=== PATIENT | male | born 1980 | race Caucasian/White ===

== ENCOUNTER 2024-10-29 00:13 | Day surgery (SDC) | payer BC, SELFPAY ==
[2024-10-19 09:52] VITALS: BMI 31.6
--- OUTSIDE RECORDS SUMMARY | 2024-10-29 00:16 | XMS_ITS | Clinical Summary ---
Author Organization [facility] Care Team Providers Care Director It Name Role Phone Unavailable Primary Care Provider Unavailabl e Social History Tobacco Use Types Packs/Day Years Used Date Smoking Tobacco: Never Assessed Sex and Gender Information Value Date Recorded Sex Assigned at Not on file Legal Sex Male 7:50 AM [place] MAN Gender Identity Not on file Sexual Orientation Not on file Plan of Treatment Health Maintenance Due Date Last Done Comments Hepatitis C Virus (HCV) Screening 1978 TdaP Immunization 1978 Hepatitis B Immunization (1 of 3 - 19+ 3-dose series) 1997 Colonoscopy 10/12/2023 Colorectal Cancer Screening 10/12/2023 Influenza Immunization (#1) 2024 SARS-COV-2 Immunization ( season) 2024 09/17/2020, 08/25/2020 Respiratory Syncytial Virus (RSV) Immunization (Adult) (1 - 1-dose 75+ series) 2053 Meningococcal Immunization (ACWY) Aged Out No longer eligible b ased on patient's age to complete this topic Pneumococcal Immunization Combined Aged Out No longer eligible b ased on patient's age to complete this topic Rotavirus Immunization Aged Out No lo nger eligible based on patient's age to complete this topic
[2024-10-29 06:22] VITALS: BP 124/94; PULSE 66; RESP 18; TEMP 35.7; O2SAT 100
[2024-10-29] MEDS: LACTATED RINGERS 1,000 ML 150 ML IV CONT (06:30)
--- NOTE | 2024-10-29 06:59 | P.PNAN_ITS ---
Anes - Initial Pre Proc Eval Procedure: Operation Date: 10/29/24 07:30 Proposed Procedures p Screening Colonoscopy - Austin Choi MD Date/Time: 10/29/24 06:59 Surgeon: Austin Choi MD Pre Op Diagnosis: screening Patient Data Age: 44 Gender: M Height: 1.65 m Weight: 85.9 kg Last Vital Signs Temp 96.3 F L 10/29/24 06:22 Pulse 66 10/29/24 06:22 Resp 18 10/29/24 06:22 BP 124/94 H 10/29/24 06:22 Pulse Ox 100 10/29/24 06:22 O2 Del Method Room Air 10/29/24 06:22 Allergies Allergy/AdvReac Type Severity Reaction Status Date / Time No Known Allergies Allergy Verified 10/29/24 06:21 Patient hx anesthesia problems: none Family hx anesthesia problems: none Results Review: All pre-operative results and documents have been reviewed as part of the pre- operative evaluation. [facility] Past Medical History Medical History Annual visit for general adult medical examination without abnormal findings Family hx of prostate cancer Eczema of both hands Acne Family history of prostate cancer in father Finger injury (~2010) Surgical History Surgical History H/O vasectomy (~2013) Family History Family History Mother Hypertension Diabetes mellitus Father Hypertension Malignant neoplasm of prostate Grandparent Pancreatic cancer Diabetes mellitus Grandparent Diabetes mellitus Alzheimer disease Grandparent Hypertension Diabetes mellitus Grandparent Hypertension Other Malignant neoplasm of prostate Other Malignant neoplasm of prostate Sibling Hypertension Social History Social History Smoking packs per day: 1 Smoking cigarettes per day: 20.0 Years smoked: 20 Smoking pack-years: 20.00 Smoking status: Former smoker Tobacco type: cigarettes Alcohol intake: current Drinks per week: 4 Substance use: never Substance use type: does not use Do You Feel Safe in your Home?: No Lack of Transportation: No Lack of Food: Never True Current Housing: I Have Housing Concerned About Future Housing: No Difficulty Paying Gas/Electric Bills: No Difficulty Paying for Meds: No Currently Unemployed: No Education: Bachelor's Degree Difficulty w/ Childcare or Family Care: No Living arrangements: with family Additional living arrangements comments: Occupation/Education: occupation Gender identity (if verbalized by the patient): Male Sexual Orientation (if Verbalized by the Patient): Straight or Heterosexual Spiritual care concerns: No Agree to blood products: Yes Anes - Eval Final PreProcedure Day of Procedure 10/29/24 06:59 Patient weight: obese Lungs: normal air movement Airway: Mallampati scale class II Neurological: alert and oriented Last oral intake: >/= 8 hours ASA classification: II Emergent: no Anesthetic plan: proceed Anesthesia type and monitoring: general GIVS and standard monitoring Results Review: All pre-operative results and documents have been reviewed as part of the pre- operative evaluation. Ex smoker, quit 2019. Informed Consent: The patient's anesthetic plan and its attendant risks and benefits were discussed with the patient/family/POA. Questions were solicited and answers provided to the satisfaction of the patient/family/POA.
--- NOTE | 2024-10-29 07:28 | PM.IMHP ---
H&P: HPI History of Present Illness Date/Time: 10/29/24 07:28 Chief Complaint: Screening colonoscopy Narrative: This is the patient's first colonoscopy. There are no GI symptoms and there is no family history of colorectal cancer. Review of Systems Review of Systems: All systems reviewed & are unremarkable except as noted in HPI and below PMFSH Past Medical History Medical History Annual visit for general adult medical examination without abnormal findings Family hx of prostate cancer Eczema of both hands Acne Family history of prostate cancer in father Finger injury (~2010) Surgical History Surgical History H/O vasectomy (~2013) Family History Family History Mother Hypertension Diabetes mellitus Father Hypertension Malignant neoplasm of prostate Grandparent Pancreatic cancer Diabetes mellitus Grandparent Diabetes mellitus Alzheimer disease Grandparent Hypertension Diabetes mellitus Grandparent Hypertension Other Malignant neoplasm of prostate Other Malignant neoplasm of prostate Sibling Hypertension Social History Social History Smoking packs per day: 1 Smoking cigarettes per day: 20.0 Years smoked: 20 Smoking pack-years: 20.00 Smoking status: Former smoker Tobacco type: cigarettes Alcohol intake: current Drinks per week: 4 Substance use: never Substance use type: does not use Do You Feel Safe in your Home?: No Lack of Transportation: No Lack of Food: Never True Current Housing: I Have Housing Concerned About Future Housing: No Difficulty Paying Gas/Electric Bills: No Difficulty Paying for Meds: No Currently Unemployed: No Education: Bachelor's Degree Difficulty w/ Childcare or Family Care: No Living arrangements: with family Additional living arrangements comments: Occupation/Education: occupation Gender identity (if verbalized by the patient): Male Sexual Orientation (if Verbalized by the Patient): Straight or Heterosexual Spiritual care concerns: No Agree to blood products: Yes Meds Home Medications and Allergies Allergies Allergy/AdvReac Type Severity Reaction Status Date / Time No Known Allergies Allergy Verified 10/29/24 06:21 Vital Signs Vital Signs - 24 hr 10/29/24 06:22 Temperature 96.3 F L Pulse Rate 66 Respiratory Rate 18 Blood Pressure 124/94 H Pulse Oximetry 100 Oxygen Delivery Room Air Exam Const: General: cooperative and healthy appearing Resp: Effort & Inspection: normal respiratory effort and able to speak in complete sentences Auscultation: clear to auscultation bilaterally Cardio: Rate: regular rate Rhythm: regular rhythm GI: Inspection: normal to inspection GI Palp: No No hepatosplenomegaly present Auscultation: normal bowel sounds Rectal Exam: deferred Skin: General skin exam: normal color Psych: Appearance: grossly normal Mental Status: mental status grossly normal Assessment and Plan Assessment and plan (1) Screening for colon cancer: Code(s): Z12.11 - Encounter for screening for malignant neoplasm of colon Status: Acute Assessment and Plan: The patient is deemed a good candidate for the procedure. Consent signed. Will proceed.
[2024-10-29 07:48] VITALS: BP 113/73; PULSE 61; RESP 21; O2SAT 97
[2024-10-29 07:58] VITALS: BP 114/71; PULSE 57; RESP 15; O2SAT 96
[2024-10-29 08:08] VITALS: BP 118/84; PULSE 59; RESP 17; O2SAT 98
== END 2024-10-29 08:18 | disposition home or self-care (01) ==
PROVIDERS: PCP Student in an Organized Health Care Education/Training Program; Referring Provider Student in an Organized Health Care Education/Training Program; Visit Provider Internal Medicine Gastroenterology
PROC: 0DJD8ZZ Inspection of Lower Intestinal Tract, Via Natural or Artificial Opening Endoscopic (ICD-10-PCS; CPT 45378; principal; 2024-10-29 07:30)
DX: Z12.11 Encounter for screening for malignant neoplasm of colon (principal); E66.9 Obesity, unspecified; Z68.31 Body mass index [BMI] 31.0-31.9, adult; Z98.890 Other specified postprocedural states; Z87.891 Personal history of nicotine dependence; Z80.42 Family history of malignant neoplasm of prostate; Z80.0 Family history of malignant neoplasm of digestive organs
CPT/HCPCS: 45378; J2003; J2704; J7120

== ENCOUNTER 2024-12-09 15:08 | Outpatient (CLI) | payer BC, SELFPAY ==
--- NOTE | ~2024-12-09 | XR_ITS ---
PA, oblique, and lateral views of the left index 100 CLINICAL HISTORY: crush injury FINDINGS: No fracture or dislocation seen. Joint spaces are intact. Soft tissues are unremarkable. IMPRESSION: Unremarkable exam. Reviewed, dictated and finalized at location M. IMPRESSION: Unremarkable exam.
== END 2024-12-09 15:09 | disposition home or self-care (01) ==
LOC: GOSHIMG 15:09
PROVIDERS: PCP Student in an Organized Health Care Education/Training Program; Visit Provider Student in an Organized Health Care Education/Training Program
DX: S69.92XA Unspecified injury of left wrist, hand and finger(s), initial encounter (principal); X58.XXXA Exposure to other specified factors, initial encounter
CPT/HCPCS: 73140